=== PATIENT | female | born 1975 | race Two or more races ===

== ENCOUNTER 2017-08-09 12:25 | Observation (INO) | payer OTHER ==
[~2017-08-09] VITALS: Ht 160 cm; Wt 120.3 kg
[~2017-08-09 12:25] MED LIST: ACIDOPHILUS1 EAC1 PO; ALEVE220 MG PO; ASPIR-LOW81 MG PO; Aspirin E.C. PO; BACTRIM,SEPT1 TABLET PO; BENTYL20 MG PO; CARAFATE1 GM PO; DOCUSATE SODIU100 MG PO; FLONASE16 G1 BOTH NARES; HYDROCODON-ACE1 EAC7 PO; IBUPROFEN800 MG PO; INDERAL LA80 MG PO; K-DUR20 MEQ; K-DUR20 MEQ PO; K-Dur PO; LASIX40 MG PO; LEVOTHYROXINE50 MCG PO; MACROBID100 MG PO; Motrin PO; NASONEX17 GM BOTH NARES; NO HOME MEDS; NOHOMEMEDS; NORCO 5/3251 TABLET PO; PANTOPRAZOLE SO40 MG PO; PATANASE30.5 GM BOTH NARES; PRILOSEC OTC20 MG PO; PROMETHAZINE HC25 M1 PO; PROPRANOLOL HCL80 M1 PO; Protonix PO; Topamax PO; ULTRAM50 MG PO; VICODIN 5-5001 EACH PO; VITAMIN D250000 UNIT PO
[2017-08-09 15:48] LABS: HEMATOCRIT 38.4 % (36.0-46.0); HEMOGLOBIN 12.4 G/DL (11.9-15.5); MCHC 32.3 G/DL (30.0-36.0); MCV 83.5 FL (83-99); PLATELET COUNT 328 K/uL (156-360); RBC DIS.WIDTH-CV 14.9 % (11.8-14.6); RBC DIS.WIDTH-SD 45.6 % (39-53)
[2017-08-09 15:59] LABS: ALBUMIN 3.8 g/dL (3.2-4.8); CHLORIDE 107 mEq/L (99-109); POTASSIUM 4.2 mEq/L (3.7-5.4); SODIUM 140 mEq/L (136-147)
[2017-08-09 16:01] LABS: GLUCOSE 82 mg/dL (70-99); TOTAL PROTEIN 7.2 g/dL (6.4-8.3)
[2017-08-09 16:03] LABS: TOTAL BILIRUBIN 0.4 mg/dL (0.0-1.0)
[2017-08-09 16:05] LABS: ALKALINE PHOSPHATASE 77 IU/L (3-129); CREATININE 0.8 mg/dL (0.6-1.3); GFR ESTIMATE (CALCULATED) > 59 mL/min/
[2017-08-09 16:06] LABS: AST (GOT) 27 IU/L (2-34); UREA NITROGEN (BUN) 12 mg/dL (9-23)
[2017-08-09 16:08] LABS: ALT (GPT) 28 IU/L (3-49); LIPASE 23 U/L (1.0-51.0)
[2017-08-09 16:15] LABS: TROP-I INTERPRETATION NEGATIVE; TROPONIN-I < 0.01 ng/mL (0.0-0.30)
[2017-08-09] MEDS ORDERED: INDERAL LA80 MG PO (18:14)
[2017-08-09] MEDS ORDERED: OMEPRAZOLE20 M2 PO (18:14)
[2017-08-09] MEDS ORDERED: SYNTHROID50 MCG PO (18:14)
[2017-08-09] MEDS ORDERED: ADULT ASPIRIN R81 MG PO (18:15)
[2017-08-09 18:21] LABS: APPEARANCE CLOUDY ((CLEAR)); BILIRUBIN NEGATIVE; BLOOD NEGATIVE; COLOR YELLOW ((YELLOW)); GLUCOSE (STRIP) NEGATIVE; KETONES NEGATIVE; LEUKOCYTES NEGATIVE; NITRITE NEGATIVE; PROTEIN (STRIP) NEGATIVE; SPECIFIC GRAVITY 1.027 (1.000-1.030); UROBILINOGEN 0.2 MG/DL (0.2-1.0)
[2017-08-09 18:28] LABS: BACTERIA RARE /HPF; EPITHELIAL CELLS 2+ /HPF; MUCUS 1+ /LPF; UCUL ADDED? NO; WHITE BLOOD CELLS 0-5 /HPF (0-5)
[2017-08-09 19:26] LABS: Estimated Average Glucose 126 mg/dL (70-123)
[2017-08-09 21:12] LABS: HDL CHOLESTEROL 44 MG/DL (Desirable>=50); LDL CHOLESTEROL 120 mg/dL (Desirable<100); NON-HDL CHOLESTEROL 132 mg/dL (Desirable<160); TOTAL CHOLESTEROL 176 mg/dL (Desirable<200); TRIGLYCERIDES 58 MG/DL (Normal: <150)
[2017-08-09 21:19] VITALS: BP 105/59
[2017-08-09 23:38] VITALS: BP 108/59
[2017-08-10 03:41] VITALS: BP 81/46
[2017-08-10 04:00] VITALS: BP 99/45
[2017-08-10 05:56] LABS: HDL CHOLESTEROL 38 MG/DL (Desirable>=50); LDL CHOLESTEROL 118 mg/dL (Desirable<100); NON-HDL CHOLESTEROL 129 mg/dL (Desirable<160); TOTAL CHOLESTEROL 167 mg/dL (Desirable<200); TRIGLYCERIDES 57 MG/DL (Normal: <150)
[2017-08-10 08:55] LABS: THYROTROPIN (TSH) 10.7 MIU/L (0.4-5.5)
[2017-08-10 12:22] VITALS: BP 99/57
[2017-08-10 16:40] VITALS: BP 110/64
[2017-08-10 19:51] VITALS: BP 120/57
[2017-08-10 23:19] VITALS: BP 97/54
[2017-08-11 03:21] VITALS: BP 92/52
[2017-08-11 08:40] VITALS: BP 108/59
[2017-08-11 10:48] VITALS: BP 117/60
== END 2017-08-11 13:36 | disposition home or self-care (01) ==
LOC: EME 12:25 → ENRESERV 18:05 → EDOF 18:08 → 5WEST 18:08 → EDOF 18:08 → ENRESERV 18:40 → 5WEST 20:54 → ENPENDDIS 08-11 → 5WEST 08-11 13:36
PROVIDERS: Hospitalist; Physician Assistant
DX: G43.109 Migraine with aura, not intractable, without status migrainosus (principal); F60.3 Borderline personality disorder; M47.9 Spondylosis, unspecified; F41.9 Anxiety disorder, unspecified; F32.9 Major depressive disorder, single episode, unspecified; F45.9 Somatoform disorder, unspecified; Z86.73 Personal history of transient ischemic attack (TIA), and cerebral infarction without residual deficits; E03.9 Hypothyroidism, unspecified; K21.9 Gastro-esophageal reflux disease without esophagitis; E66.9 Obesity, unspecified; Z68.42 Body mass index [BMI] 45.0-49.9, adult; F17.210 Nicotine dependence, cigarettes, uncomplicated; Z79.82 Long term (current) use of aspirin; Z88.0 Allergy status to penicillin; Z88.5 Allergy status to narcotic agent; Z91.018 Allergy to other foods; Z91.040 Latex allergy status; Z90.710 Acquired absence of both cervix and uterus; Z83.3 Family history of diabetes mellitus; Z80.9 Family history of malignant neoplasm, unspecified
CPT/HCPCS: 70450; 72148; 80053; 80061; 81003; 83036; 83690; 84439; 84443; 84484; 85027; 93005; 93880; 99281; 99285; G0378; J1200; J1885; J2765; J3010

== ENCOUNTER 2017-11-02 21:16 | Emergency (ER) | payer OTHER ==
[~2017-11-02] VITALS: Ht 160 cm; Wt 119.2 kg
[~2017-11-02 21:16] MED LIST changes: +ADULT ASPIRIN R81 MG PO; +OMEPRAZOLE20 M2 PO; +SYNTHROID50 MCG PO
[2017-11-02 21:38] LABS: HEMATOCRIT 38.3 % (36.0-46.0); HEMOGLOBIN 12.5 G/DL (11.9-15.5); MCH 27.2 PG (29.0-34.0); MCHC 32.6 G/DL (30.0-36.0); MCV 83.3 FL (83-99); PLATELET COUNT 337 K/uL (156-360); RBC DIS.WIDTH-CV 14.6 % (11.8-14.6); RBC DIS.WIDTH-SD 44.2 % (39-53)
[2017-11-02 22:19] LABS: ALBUMIN 4.1 g/dL (3.2-4.8)
[2017-11-02 22:20] LABS: CHLORIDE 105 mEq/L (99-109); POTASSIUM 4.4 mEq/L (3.7-5.4); SODIUM 142 mEq/L (136-147)
[2017-11-02 22:22] LABS: GLUCOSE 110 mg/dL (70-99); TOTAL PROTEIN 7.5 g/dL (6.4-8.3)
[2017-11-02 22:24] LABS: TOTAL BILIRUBIN 0.4 mg/dL (0.0-1.0)
[2017-11-02 22:25] LABS: ALKALINE PHOSPHATASE 98 IU/L (3-129)
[2017-11-02 22:26] LABS: CREATININE 0.9 mg/dL (0.6-1.3); GFR ESTIMATE (CALCULATED) > 59 mL/min/
[2017-11-02 22:27] LABS: AST (GOT) 13 IU/L (2-34); UREA NITROGEN (BUN) 14 mg/dL (9-23)
[2017-11-02 22:28] LABS: ALT (GPT) 10 IU/L (3-49)
[2017-11-02 22:34] LABS: QUANTITATIVE HCG < 4.0 MIU/ML
[2017-11-03 01:03] LABS: APPEARANCE CLEAR ((CLEAR)); BILIRUBIN NEGATIVE; BLOOD NEGATIVE; COLOR YELLOW ((YELLOW)); GLUCOSE (STRIP) NEGATIVE; KETONES NEGATIVE; LEUKOCYTES NEGATIVE; NITRITE NEGATIVE; PROTEIN (STRIP) 30; SPECIFIC GRAVITY 1.023 (1.000-1.030); UCUL ADDED? NO; UROBILINOGEN 0.2 MG/DL (0.2-1.0)
[2017-11-03 01:51] VITALS: BP 108/60
== END 2017-11-03 01:52 | disposition home or self-care (01) ==
LOC: EME 21:16
DX: K80.20 Calculus of gallbladder without cholecystitis without obstruction (principal); K21.9 Gastro-esophageal reflux disease without esophagitis; J45.909 Unspecified asthma, uncomplicated; M41.9 Scoliosis, unspecified; G51.0 Bell's palsy; E28.2 Polycystic ovarian syndrome; F41.9 Anxiety disorder, unspecified; F32.9 Major depressive disorder, single episode, unspecified; F17.200 Nicotine dependence, unspecified, uncomplicated; Z79.82 Long term (current) use of aspirin; Z86.73 Personal history of transient ischemic attack (TIA), and cerebral infarction without residual deficits; Z87.19 Personal history of other diseases of the digestive system; Z90.710 Acquired absence of both cervix and uterus; Z90.49 Acquired absence of other specified parts of digestive tract; Z88.5 Allergy status to narcotic agent; Z88.0 Allergy status to penicillin; Z91.040 Latex allergy status; Z91.018 Allergy to other foods; Z91.048 Other nonmedicinal substance allergy status
CPT/HCPCS: 76705; 80053; 81003; 84702; 85027; 99281; 99284; J2270; J2405; J7030